=== PATIENT | male | born 1995 | race Two or more races ===

== ENCOUNTER 2020-03-31 17:39 | Emergency (ER) | payer SELFPAY ==
[~2020-03-31] VITALS: Ht 180.3 cm; Wt 81.6 kg
--- NOTE | 2020-03-31 17:40 | NUR ---
ED Nurse Note: blood specimen sent
[2020-03-31 17:48] VITALS: BP 137/90
--- NOTE | 2020-03-31 17:57 | NUR ---
ED Nurse Note: PT ARRIVED WITH RA 58 TO ED. PT ADMITS TO SMOKING FENTANYL PRIOR TO ARRIVAL. PT DENIES HARM TO SELF OR OTHERS. PT IS RAMBLING FLIGHT OF IDEAS. PT IS ABLE TO FOLLOW DIRECTIONS AND IS COOPERATIVE. PT REPORT HE IS UNABLE TO PROVIDE URINE AT THIS TIME. NO ACUTE DISTRESS NOTED. PT SATURATING AT 100&% ROOM AIR.
--- NOTE | 2020-03-31 18:35 | NUR ---
ED Nurse Note: Pt urine sent to lab
--- NOTE | 2020-03-31 18:47 | NUR ---
ED Nurse Note: Pt in bed asleep, vss.
--- NOTE | 2020-03-31 19:06 | NUR ---
HAND-OFF: Report given to nahum rodriguez.
[2020-03-31 20:30] VITALS: BP 125/85
--- NOTE | 2020-03-31 20:30 | NUR ---
ED Nurse Note: pt moved from bed 03 to tx 2
--- NOTE | 2020-03-31 22:10 | NUR ---
ED Nurse Note: Pt resting in bed, no ss of distress noted. will continue to monitor.
[2020-03-31 22:15] VITALS: BP 129/86
--- NOTE | 2020-03-31 23:27 | Emergency Room Report ---
History of Present Illness General Chief Complaint: Substance Abuse Source: Patient, EMS Present Illness HPI This patient is a homeless male brought in by EMS from the streets. The patient was smoking fentanyl and a bystander called because he was unresponsive. He was given Narcan, Zofran prior to arrival. He is alert but intoxicated. He has no specific complaints. Allergies: Coded Allergies: No Known Allergies (Unverified , 03/31/20) COVID-19 Screening Contact w/high risk pt: No Experienced COVID-19 symptoms?: No COVID-19 Testing performed COMPLAINT SPECIALIST: No Patient History Past Medical History: none Social History: Reports: alcohol use, drug use Reviewed Nursing Documentation: PMH: Agreed; PSxH: Agreed Nursing Documentation-PMH Past Medical History: No History, Except For History Of Psychiatric Problem: Yes - substance abuse. Review of Systems All Other Systems: negative except mentioned in HPI Physical Exam Vital Signs Date Time Temp Pulse Resp B/P (MAP) Pulse Ox O2 Delivery O2 Flow Rate FiO2 03/31/20 17:32 95.5 84 18 137/90 (106) 98 Room Air Sp02 EP Interpretation: reviewed, normal General Appearance: no apparent distress, alert, GCS 15, non-toxic, other - P oor personal hygiene Head: normocephalic, atraumatic Eyes: bilateral eye normal inspection, bilateral eye PERRL ENT: hearing grossly normal, no angioedema, normal voice Neck: normal inspection Respiratory: no respiratory distress, no retraction, no accessory muscle use, speaking full sentences Cardiovascular #1: regular rate, rhythm, no edema Gastrointestinal: normal inspection, non-distended Rectal: deferred Musculoskeletal: back normal, normal range of motion, gait/station normal, non- tender Neurologic: alert, motor strength/tone normal, oriented x3, sensory intact, responsive, speech normal Psychiatric: judgement/insight normal, memory normal, mood/affect normal, no suicidal/homicidal ideation Medical Decision Making Diagnostic Impression: Primary Impression: Accidental fentanyl overdose ER Course This patient presented after fentanyl overdose. He had been treated with Narcan prior to arrival. The patient was alert with normal vital signs during his entire ED course. He was monitored for 6 hours and there was no relapse concerning for a significant fentanyl load. The patient was ambulating, using the restroom and alert. He was requesting food. He was given the local resources for homeless shelters, director of social work and drug rehabilitation. At this time, no emergency medical conditions identified. EKG Diagnostic Results Rate: normal Rhythm: NSR ST Segments: no acute changes Rhythm Strip Diag. Results EP Interpretation: yes Rate: 60's Rhythm: NSR, no PVC's, no ectopy Last Vital Signs Date Time Temp Pulse Resp B/P (MAP) Pulse Ox O2 Delivery O2 Flow Rate FiO2 03/31/20 17:48 95.5 18 137/90 98 Room Air 03/31/20 17:48 84 Status: improved Disposition: HOME, SELF-CARE Condition: Improved Referrals: NOT CHOSEN IPA/,REFERRING (PCP) Mague Morgan DO Mar 31, 2020 23:27
[2020-03-31 23:42] VITALS: BP 127/91
--- NOTE | 2020-03-31 23:42 | NUR ---
ER DISCHARGE NOTE: Patient is cleared to be discharged home per ERMD, pt is aox4, 99% on room air, with stable vital signs. pt was given dc instructions, pt was able to verbalize understanding, pt id band removed without complications. pt is able to ambulate with steady gait. pt took all belongings. pt given additional food, clothing, and resources.
== END 2020-03-31 23:42 | disposition home or self-care (01) ==
LOC: EDBD 17:39 → EMR 20:32
DX: T40.411A Poisoning by fentanyl or fentanyl analogs, accidental (unintentional), initial encounter (principal); Y92.9 Unspecified place or not applicable; Z59.0 Homelessness
CPT/HCPCS: 93005; 99282